=== PATIENT | female | born 1985 | race Caucasian/White ===

== ENCOUNTER 2016-06-24 08:06 | Day surgery (SDC) | payer MEDICAID, OTHER ==
[~2016-06-24] VITALS: Ht 160 cm; Wt 79.0 kg
[2016-06-24] VITALS (15 sets, daily range): BP systolic 91–126; BP diastolic 46–74; PULSE 60–90; RESP 15–32; Ht 160 cm; Wt 79.0 kg
[~2016-06-24 08:06] MED LIST: CEFAZOLIN 1 GM INJ ONE; PREN-39 PO
[2016-06-24] MEDS ORDERED: CEFAZOLIN 2 GM/50 ML (PMX) 50 ML IVPB ONE (08:30)
[2016-06-24] MEDS ORDERED: SOD CHLORIDE 0.9% 1,000 ML IV SCH (08:30)
[2016-06-24 09:40] LABS: ADD SCAN DIFF NO
[2016-06-24 09:42] LABS: BASOPHILS % 0.1 % (0.0-2.0); EOSINOPHILS % 0.6 % (0.0-7.0); HEMATOCRIT 38.8 % (37.0-47.0); HEMOGLOBIN 13.2 g/dl (12.0-16.0); LYMPHOCYTES # 1.5 10^3/ul (0.8-2.9); LYMPHOCYTES % 20.1 % (15.0-51.0); MEAN CORPUSCULAR HEMOGLOBIN 29.7 pg (29.0-33.0); MEAN CORPUSCULAR VOLUME 87.4 fl (82.0-101.0); MEAN PLATELET VOLUME 11.1 fl (7.4-10.4); MONOCYTE # 0.6 10^3/ul (0.3-0.9); MONOCYTES % 8.8 % (0.0-11.0); NEUTROPHIL # 5.1 10^3/ul (1.6-7.5); PLATELET COUNT 191 10^3/UL (140-415); RED BLOOD COUNT 4.44 10^6/ul (4.20-5.40); RED CELL DISTRIBUTION WIDTH 13.5 % (11.5-14.5); WHITE BLOOD COUNT 7.3 10^3/ul (4.8-10.8)
[2016-06-24 10:06] LABS: INR 0.96; PROTIME 12.8 Sec (12.2-14.2)
[2016-06-24 10:07] LABS: PARTIAL THROMBOPLASTIN TIME 28.1 Sec (25.0-35.0)
[2016-06-24] MEDS ORDERED: PROPOFOL 100 ML ONE (10:09)
[2016-06-24 10:10] LABS: CALCIUM 8.7 mg/dl (8.4-10.2); CREATININE 0.62 mg/dl (0.44-1.00); POTASSIUM 4.1 mmol/L (3.5-5.1)
[2016-06-24] MEDS ORDERED: BUPIVACAINE 0.25% (MPF) 10 ML 10 ML VIAL ONE (10:10)
[2016-06-24] MEDS ORDERED: ROCURONIUM 50 MG INJ ONE (10:13)
[2016-06-24] MEDS ORDERED: LIDOCAINE 2% (SDV) 5 ML INJ ONE (10:13)
[2016-06-24] MEDS ORDERED: ACETAMINOPHEN 1000MG/100ML IV 100 ML ONE (10:13)
[2016-06-24] MEDS ORDERED: MIDAZOLAM 1 MG/ML 2 ML INJ ONE (10:15)
[2016-06-24] MEDS ORDERED: LABETALOL HCL 20MG INJ ONE (10:30)
[2016-06-24] MEDS ORDERED: DEXAMETHASONE 4 MG/ML 1 ML INJ ONE (10:31)
[2016-06-24] MEDS ORDERED: ONDANSETRON 4 MG INJ ONE (10:33)
[2016-06-24] MEDS ORDERED: NEOSTIGMINE 3 MG/3 ML SYRINGE ONE (10:53)
[2016-06-24] MEDS ORDERED: GLYCOPYRROLATE 0.4 MG INJ ONE (10:53)
[2016-06-24] MEDS ORDERED: EPHEDrine SULFATE 50 MG/5 ML SYG IV PRN (11:00)
[2016-06-24] MEDS ORDERED: LABETALOL HCL 20MG INJ IV PRN (11:00)
[2016-06-24] MEDS ORDERED: ONDANSETRON 4 MG INJ IV PRN (11:00)
[2016-06-24] MEDS ORDERED: MEPERIDINE 25 MG INJ IV PRN (11:00)
[2016-06-24] MEDS ORDERED: HYDROCODONE/APAP (5/325) TAB PO ONE (11:00)
[2016-06-24] MEDS ORDERED: hydrALAzine 20 MG INJ IV PRN (11:00)
[2016-06-24] MEDS ORDERED: HYDROmorphONE (0.2 MG/ML) 10ML SYG IV PRN ×3 (11:00)
[2016-06-24] MEDS ORDERED: FENTAnyl 50 MCG/ML VIAL IV PRN ×3 (11:00)
--- NOTE | 2016-06-24 11:14 | OPR ---
DATE OF OPERATION: 06/24/2016 INDICATIONS: This is a 30-year-old female with symptomatic gallstones. She requests surgical excis ion of her gallbladder. Risks, alternatives, benefits, and personnel were expressed to the patient. Patient expresses understanding and consents to the operation. PREOPERATIVE DIAGNOSIS: Symptomatic gallstones. POSTOPERATIVE DIAGNOSIS: Symptomatic gallstones. OPERATION: Laparoscopic cholecystectomy. SURGEON: Muriel Steinberg MD SPECIMENS: Gallbladder. COMPLICATIONS: None. ANESTHESIA: General. PROCEDURE: The patient was taken to the OR and prepped and draped in the usual sterile fashion. Jordan rgical timeout was performed. IV antibiotics were given. Infraumbilical transverse incision is mad e with a 15 blade. Dissection cautery was carried down to the fascia which was grasped with Kochers and divided with curved Jeffery scissors. An 0 Vicryl U-stitch was placed into the fascia. Balloon H asson trocar was introduced. Pneumoperitoneum was established. Midepigastric 12 mm optical trocar and right upper quadrant and right upper flank 5 mm optical trocars placed under direct visualizatio n. Upon initial inspection, there were some adhesions to the gallbladder which were taken down blun tly. The cystic duct was identified. The critical view was established. The cystic duct was divid ed using a 35 mm Caney vascular load stapler. Additional clips were placed for reinforcement. Cy stic artery was divided using clips and scissors. Gallbladder was taken off the gallbladder bed. T here was good hemostasis. Gallbladder was retrieved using an EndoCatch bag. Ports were removed und er direct visualization, 0 Vicryl U-stitch was tied down. Skin was closed using skin gisela. Loca l anesthesia was injected. Dry dressings were applied. Dictated By: MURIEL STEINBERG MD SB/NTS Conf#: [id number] DID#: [id number]
== END 2016-06-24 14:08 | disposition home or self-care (01) ==
LOC: SDS 08:06
PROVIDERS: ATTEND Surgery
DX: K80.20 Calculus of gallbladder without cholecystitis without obstruction (principal); E66.9 Obesity, unspecified; Z68.30 Body mass index [BMI] 30.0-30.9, adult
CPT/HCPCS: 47562; 80048; 85025; 85610; 85730; 88304; J0131; J0690; J1100; J1170; J2175; J2250; J2405; J3010; Z7512; Z7610; J2710

== ENCOUNTER 2017-06-12 07:15 | Day surgery (SDC) | END 2017-06-12 11:30 | disposition home or self-care (01) ==